=== PATIENT | male | born 1990 | race Two or more races ===

== ENCOUNTER 2017-05-11 11:36 | Emergency (ER) | payer SELFPAY ==
[~2017-05-11] VITALS: Ht 170.2 cm; Wt 65.8 kg
[2017-05-11 12:00] VITALS: BP 149/99
[2017-05-11 13:25] LABS: Basophils # (auto) 0.1 uL; Basophils % (auto) 0.7 % (0.0-2.0); Eosinophils # (auto) 0.1 uL; Eosinophils % (auto) 1.2 % (0.0-7.0); Hematocrit 47.8 % (41.0-53.0); Hemoglobin 16.7 g/dL (13.5-17.5); Lymphocytes # (auto) 2.1 uL; Lymphocytes % (auto) 28.8 % (10.0-50.0); Mean Corpuscular Hemoglobin 31.6 pg (28.0-32.0); Mean Corpuscular Hgb Conc. 34.9 g/dL (32.0-36.0); Mean Corpuscular Volume 90.5 fL (80.0-100.0); Monocytes # (auto) 0.5 uL; Monocytes % (auto) 6.7 % (0.0-12.0); Neutrophils # (auto) 4.5 uL; Neutrophils % (auto) 62.6 % (37.0-80.0); Platelet Count (auto) 193 10^3/uL (140-450); Red Blood Cells 5.28 10^6/uL (4.5-5.90); Red Cell Distribution Width 12.7 % (11.8-14.3); White Blood Cell 7.2 10^3/uL (4.4-10.8)
[2017-05-11] MEDS ORDERED: SODIUM CHLORIDE 0.9% 1,000 ML IV ONE (13:35)
[2017-05-11 13:38] LABS: Albumin 4.1 g/dL (3.4-5.0); BUN/Creatinine Ratio 6.7; Potassium 3.7 mmol/L (3.5-5.1); Total Protein 7.7 g/dL (6.4-8.2)
[2017-05-11] MEDS ORDERED: InsuLIN REG 1unit/0.01ml Soln (100units/ml) IV ONE (13:45)
== END 2017-05-11 17:19 | disposition home or self-care (01) ==
LOC: ER 11:36
DX: E11.65 Type 2 diabetes mellitus with hyperglycemia (principal); F12.10 Cannabis abuse, uncomplicated
CPT/HCPCS: 36415; 71046; 80053; 82010; 82962; 85025; 94761; 96361; 96374; 99285; J1815